=== PATIENT | female | born 1940 | race Caucasian/White ===

== ENCOUNTER 2018-03-13 16:17 | Outpatient (CLI) | payer MEDICARE, BC ==
--- NOTE | 2018-03-14 09:10 | Mammography Report ---
Reason: SCREENING MAMMO Procedure Date: 03/13/2018 Accession Number: [id number] / [id number] Procedure: ANICETO - Screening Mammo w/Syed CPT Code: FULL RESULT: EXAM: Screening Mammo w/Syed DATE: 03/13/2018 5:07 PM CLINICAL HISTORY: Screening encounter. History of late childbearing. TECHNIQUE: Bilateral CC and MLO views were obtained. COMPARISON: 02/12/2014 through 11/25/2009. FINDINGS: The breasts demonstrate extremely dense parenchyma bilaterally, limiting the sensitivity of mammography. No suspicious masses, clustered microcalcifications, or regions of architectural distortion are identified. IMPRESSION: Negative examination RECOMMENDATION: Routine annual screening unless otherwise clinically indicated. BIRADS CATEGORY 1: Negative STANDARD QUALIFYING STATEMENTS: 1. This examination was not reviewed with the aid of Computer-Aided Detection (CAD). 2. A negative or benign imaging report should not preclude biopsy if clinically suspicious findings are present. 3. Dense breasts may obscure an underlying neoplasm. 4. This examination was reviewed with the aid of 3D breast imaging (tomosynthesis).
== END 2018-03-13 16:18 | disposition home or self-care (01) ==
LOC: DI 16:17
PROVIDERS: ATTEND Internal Medicine
DX: Z12.31 Encounter for screening mammogram for malignant neoplasm of breast (principal)
CPT/HCPCS: 77063; 77067

== ENCOUNTER 2018-09-28 16:28 | Outpatient (CLI) | payer MEDICARE, BC ==
--- NOTE | 2018-09-28 17:39 | XRAY Report ---
Reason: BACK INJURY Procedure Date: 09/28/2018 Accession Number: [id number] / [id number] Procedure: XR - Thoracic Spine 2 View CPT Code: FULL RESULT: EXAM: THORACIC SPINE RADIOGRAPHY EXAM DATE: 09/28/2018 05:00 PM. CLINICAL HISTORY: Back injury. COMPARISON: None. TECHNIQUE: 2 views. FINDINGS: Alignment: A mild biphasic thoracic scoliosis present. No spondylolisthesis evident. There is also mild kyphotic curvature at the thoracolumbar junction. Bones: Diffuse osteopenia noted. No definite acute fracture evident. There is mild chronic appearing compression of the T12 and L1 vertebral bodies measuring 20% or less. Disks: Mild multilevel degenerative disk disease present diffusely. Soft Tissues: Normal. The visualized lungs and cardiomediastinal silhouette are normal. IMPRESSION: 1. No definite acute fracture. 2. Mild chronic appearing fractures of T12 and L1. 3. Mild biphasic scoliosis and thoracolumbar kyphosis. 4. Mild diffuse degenerative disk disease. [facility]
--- NOTE | 2018-09-28 17:53 | XRAY Report ---
Reason: BACK INJURY Procedure Date: 09/28/2018 Accession Number: [id number] / [id number] Procedure: XR - Lumbar Spine 2 View CPT Code: FULL RESULT: EXAM: LUMBOSACRAL SPINE RADIOGRAPHY EXAM DATE: 09/28/2018 05:00 PM. CLINICAL HISTORY: Back injury after lifting heavy object several weeks ago. COMPARISONS: None. TECHNIQUE: 3 views. FINDINGS: Alignment: A mild levoscoliosis at the thoracolumbar junction present. No spondylolisthesis. A mild kyphotic curvature at L1 noted. Bones: Five [id number] lumbar vertebral bodies are present. A potentially acute to subacute compression fracture involving the inferior endplate of L1 noted measuring approximately 20%. There is mild loss of height of the L2 vertebral body as well measuring 10-15% but appears chronic. No focal bone lesion. Disks: Mild degenerative disk disease present diffusely about the lumbar spine, worst at T12-L3 and L5-S1. Facets: No degenerative changes. Sacroiliac Joints: Unremarkable. Soft Tissues: Normal. The visualized bowel gas pattern is normal. IMPRESSION: 1. Acute to subacute mild inferior endplate L1 compression fracture likely present. 2. More mild chronic L2 compression fracture. 3. Mild diffuse degenerative disk disease as described. [facility]
== END 2018-09-28 16:29 | disposition home or self-care (01) ==
LOC: DI 16:28
PROVIDERS: ATTEND Internal Medicine
DX: M51.36 Other intervertebral disc degeneration, lumbar region (principal); M51.34 Other intervertebral disc degeneration, thoracic region; M41.84 Other forms of scoliosis, thoracic region; M48.56XA Collapsed vertebra, not elsewhere classified, lumbar region, initial encounter for fracture; M48.54XA Collapsed vertebra, not elsewhere classified, thoracic region, initial encounter for fracture
CPT/HCPCS: 72070; 72100